=== PATIENT | female | born 1970 | race Caucasian/White ===

== ENCOUNTER 2023-11-17 01:18 | Emergency (ER) | payer BC, SELFPAY ==
[2023-11-17 01:21] VITALS: BP 94/52; BMI 25.0
--- NOTE | 2023-11-17 01:34 | ED.GENMED ---
History of Present Illness
General
Chief Complaint: Fainting/Passed Out
Source: patient
Exam Limitations: none
Time Seen by Provider: 11/17/23 01:21
History of Present Illness
History of Present Illness:
This is a 53 year old female that is brought in by ambulance with c/o syncope. States that she was doing a prep for a Colonoscopy tomorrow. States that she fell asleep around 10pm and awoke at 12midnight. States that she was feeling a little
lightheaded and she wasn't sure if she needed to go to the bathroom or vomiting. States that she sat down in the [place] and crawled to the BR. States that she sat on the toilet and passed out. States that her work her up and he was slapping
here. States that she did not fall off the toilet. States that she was nauseated. Denies any fever, chills. chest pain, SOB, abd pain, vomiting, diarrhea, headache, dizziness, urinary burning.
Past History
Past History
ED Past Medical History: Hypothyroidism and Other (Renal artery aneurysm)
ED Past Surgical History: (X 1), Orthopedic (ACL left repair) and Urological (Status post left nephrectomy)
Social History
Tobacco: Non-smoker
Alcohol: None
Drug: None
Personal:
Living: with family
Employment: Employed
Family History
Family History: Other
Review of Systems
Review of Systems
All Other Systems: ROS reviewed and negative except as documented in HPI and ROS
Constitutional: Reports no symptoms; Denies fever or chills
EENT: Reports no symptoms
Respiratory: Reports no symptoms; Denies cough or trouble breathing
Cardiac: Reports no symptoms; Denies chest pain
ABD/GI: Reports nausea; Denies abdominal pain, vomiting or diarrhea
: Reports no symptoms; Denies dysuria, frequency or urgency
Musculoskeletal: Reports no symptoms
Skin: Reports no symptoms
Neurological: Reports no symptoms; Denies dizzy or headache
Psychiatric: Reports no symptoms
Phy Exam
General Physical Exam
General Presentation: well appearing and no apparent distress
General age: appears stated age
General Skin: warm and dry
General Habitus: normal
General Mental: alert
General Hydration: dry mucous membranes
ENT Exam
ENT Exam: TM's normal, pharynx normal and neck supple
Eye Exam
Eye Exam: EOMI
Cardiovascular Exam
Cardiovascular Exam: regular rate/rhythm, no edema, no murmur and normal peripheral pulses
Pulmonary Exam
Pulmonary Exam: lungs clear, no respiratory distress, no rales, chest non tender, no crackles, no rhonchi, no wheezing and no cough
Gastrointestinal Exam
Gastrointestinal Exam: non tender, soft, no organomegaly, no pulsatile mass, non distended and other (Hyperactive bowel sounds)
Musculoskeletal Exam
Musculoskeletal Exam: full ROM and no edema
Skin Exam
Skin Exam: normal color, warm/dry, no rash and no petechia
Psychiatric Exam
Psychiatric Exam: normal mood/affect
Course
Orders/Labs/Results
Orders:
Orders
11/17/23 01:20
Electrocardiogram (*1) Urgent
Reason for Study: Syncope
EKG- Treatment ONCE
11/17/23 01:32
Complete Blood Count/With Diff Urgent
Comprehensive Metabolic Panel Urgent
11/17/23 01:37
Troponin I Urgent
11/17/23 01:40
Orthostatic VS- Treatment ONCE
0.9% Sodium Chloride 1000 ml [Nss] 1,000 ml IV BOLUS
Abnormal Lab Results
11/17/23
01:32
Hct 35.4 L %
(37.0-47.0)
Creatinine 1.1 H mg/dL
(0.6-1.0)
Glucose 135 H mg/dl
(70-99)
11/17/23 01:32
11/17/23 01:32
Cr very slightly elevated. Glucose nonfasting. Troponin <0.012
Vital Signs
Initial and Last Documented VS:
Initial Vital Signs
Temp Pulse Resp BP Pulse Ox
98.2 F 65 16 94/52 99
11/17/23 01:21 11/17/23 01:21 11/17/23 01:21 11/17/23 01:21 11/17/23 01:21
Last Documented Vital Signs
Temp Pulse Resp BP Pulse Ox
98.2 F 83 14 91/53 96
11/17/23 01:21 11/17/23 02:30 11/17/23 02:30 11/17/23 02:00 11/17/23 02:30
MDM/Problems Addressed
Differential Diagnosis Includes:
vaso vagal syncope. Dehydration.
MDM/Problems Addressed:
This is a 53 year old female that was doing a colonoscopy prep. states that she was on the toilet and passed out.
will check labs and give IV fluid
Chronic conditions affecting care:
NA
Acute Exacerbation and/or Progression of Chronic Illness:
NA
*Pulse Oximetry
Patient hypoxic: no
*EKG
Interpreted by ED Provider?: Yes
Heart Rate: 63
Rate: normal
Rhythm: sinus
Tobias: normal axis
Interval: first degree heart block
QRS Pattern: normal QRS
Ischemia: no ischemia
*Educational Consultant Interpretation
Rate: normal
Heart Rate: 68
Rhythm: sinus
*Critical Care Note
Total Time (30-74mins, 75-104mins- exclusive of procedures): Not Applicable
ED Attending Note
-
Portions of this chart may have been created with voice recognition software.� Occasional wrong word or��sound alike� substitutions may have occurred due to the inherent limitations of voice recognition software.
Discharge Plan
Departure
Patient Disposition: Home (Routine Discharge)
Date of Disposition: 11/17/23
Time of Disposition: 02:38
Patient with high blood pressure during this ER visit?: No
Condition: Good
Covid-19: Not Applicable
Discharge Problem:
Syncope, Vaso vagal episode
Instructions: Syncope (Fainting) (DC)
Prescriptions:
No Action
hydrocodone-acetaminophen 1 TABLET tablet
1 tab PO Q4HPRN PRN (Reason: severe pain) Qty: 10 0RF
cephalexin 500 MG capsule
500 mg PO BID Qty: 19 0RF
Activity Restrictions/Additional Instructions:
As discussed, your blood work is normal. Your Troponin which is specific for your heart is normal. This was most likely due to Vaso vagal syncope where your blood pressure drops and you pass out due to the Prep. Please increase your water intake to
8-8oz glasses daily. Follow up with the family doctor for recheck. IF YOU HAVE ANY OTHER CONCERNS PLEASE RETURN TO THE EMERGENCY ROOM.
Interventions
Interventions:
*Risk Screen - Suicide Last Done: 11/17/23 01:21
*General Assessment Last Done: 11/17/23 01:21
*Neglect/Abuse Screening Last Done: 11/17/23 01:21
*ED COVID-19 Vaccine History Last Done: 11/17/23 01:21
ED- Cardiac Assessment Last Done: 11/17/23 01:21
ED- Neurological Assessment Last Done: 11/17/23 01:21
Discharge Date and Time
Print Language: NEPALI
[2023-11-17 01:39] LABS: % Basophils 0.8 % (0-2); % Eosinophils 3.2 % (0-6); % Immature Granulocytes 0.2 % (0-0.5); % Lymphocytes 35.5 % (20.5-51.1); % Monocytes 8.1 % (1.7-9.3); % Neutrophils 52.2 % (42.2-75.2); Absolute Basophils 0.1 10^3/uL (0-0.2); Absolute Eosinophils 0.2 10^3/uL (0-0.7); Absolute Lymphocytes 2.2 10^3/uL (1.2-3.4); Absolute Monocytes 0.5 10^3/uL (0.1-0.6); Absolute Neutrophils 3.3 10^3/uL (1.4-6.5); Hematocrit 35.4 % (37.0-47.0); Mean Corp Hgb Conc. 33.9 g/dL (33.0-37.0); Mean Corpuscular Hgb 28.6 pg (27.0-31.0); Mean Corpuscular Volume 84.3 fL (81.0-99.0); Mean Platelet Volume 9.4 fL (7.4-10.4); Nucleated Red Blood Cells % 0 %; Platelet Count 255 10^3/uL (130-400); Red Cell Dist. Width 12.1 % (11.5-14.5); White Blood Cell Count 6.3 10^3/uL (4.8-10.8)
[2023-11-17] MEDS: NSS 1000 IV (01:46)
[2023-11-17 02:00] VITALS: BP 91/53
[2023-11-17 02:02] LABS: ALT (SGPT) 35 U/L (0-35); AST (SGOT) 28 U/L (14-36); Albumin 4.5 g/dl (3.5-5.0); Alkaline Phosphatase 88 U/L (38-126); Blood Urea Nitrogen 16 mg/dl (7-17); Calcium 9.9 mg/dl (8.4-10.2); Carbon Dioxide 25 mmol/L (22-30); Chloride 102 mmol/L (98-107); Estimated Creatinine Clearance 54 ml/min; Glucose 135 mg/dl (70-99); Sodium 140 mmol/L (135-145); Total Bilirubin 0.7 mg/dl (0.2-1.3); Total Protein 7.1 g/dl (6.3-8.2); eGFR 59.34
[2023-11-17 02:16] LABS: Troponin I < 0.012 ng/ml
[2023-11-17 02:35] VITALS: BP 81/70; BP 90/51; BP 94/69; PULSE 73; PULSE 74
[2023-11-17 03:00] VITALS: BP 94/64
[2023-11-17 04:00] VITALS: BP 97/66
== END 2023-11-17 05:01 | disposition home or self-care (01) ==
LOC: EMR 01:18
PROVIDERS: Clinical Nurse Specialist Family Health; EMERGENCY PHYSICIAN Emergency Medicine; FAMILY PHYSICIAN Family Medicine
DX: R55 Syncope and collapse (principal)
CPT/HCPCS: 99284; 96360; 80053; 84484; 85025; 93005